=== PATIENT | male | born 1980 | race Caucasian/White ===

== ENCOUNTER 2017-07-13 17:32 | Emergency (ER) | payer OTHER ==
[2017-07-13 17:42] VITALS: RESP 16; TEMP 98.2
--- NOTE | 2017-07-13 17:46 | EDPHY ---
H & P Stated Complaint: word finding difficulty HPI/ROS: CHIEF COMPLAINT: Difficulty finding words verbally and written HISTORY OF PRESENT ILLNESS: The patient is a 37 y/o male with an undiagnosed but probable history of ocular migraines complaining of an episode in which he had difficulty finding words both verbally and reading. About 45 minutes ago he was getting ready to leave work when he went to send a text. As he was typing the words, he noticed he "just couldn't get the words right". He tried to write by hand and had the same problem. He then approached a coworker and had difficulty saying the correct word. As he exited the building to go to the ED he noted an aura in his right eye. He has had auras before that are peripheral and sparkling. This aura was also peripheral and sparkling, he also describes lightning bolts in his vision. He had a mild headache on the drive over. He denies current headache, nausea, vomiting, muscular impairments, decreased sensation, or any other associated symptoms. His language difficulty has resolved. He has had a few recent illnesses with the most recent being 5 days of vomiting that resolved 2 weeks ago. He reports he used his eczema medication for the first time in over a year last night. REVIEW OF SYSTEMS: A ten point review of systems was performed and is negative with the exception of the items mentioned in the HPI. Past medical history: 1. Probable ocular migraines 2. ADHD 3. Eczema Past surgical history: Denies Family history: DVT and PE maternally, angina and CLL paternally Social history: at bedside, associate data scientist, works at [employer] General Appearance: Alert. Vital signs reviewed. Blood pressure 156/115. Eyes: Pupils equal and round, no conjunctival injection, no discharge. Anicteric. ENT, Mouth: Mucous membranes are moist, no oropharyngeal erythema or edema. Neck: No lymphadenopathy, supple. Respiratory: Lungs are clear to auscultation; no wheezes, rales, or rhonchi. Cardiovascular: Regular rate and rhythm; no murmur, rub, or gallop. Gastrointestinal: Abdomen is soft and nontender, no masses or organomegaly, bowel sounds normal. Skin: Warm and dry, no rashes on exposed skin, normal color. Back: Nontender to palpation over the thoracolumbar spine. No CVAT. Extremities: No lower extremity edema, no calf tenderness or swelling. Neurological: Alert and oriented. Moving all four extremities easily and equally. Cranial nerves II through XII are examined and are intact (visual acuity not tested). Strength is 5 over 5 bilaterally with testing of all major motor groups. Sensation is intact to light touch over all 4 extremities. Deep tendon reflexes are 2+ in the biceps and knees bilaterally. Gait is normal. [id number]-sm-[id number] is performed accurately. Psychiatric: Normal affect. - Personal History Current Tetanus/Diphtheria Vaccine: Yes Current Tetanus Diphtheria and Acellular Pertussis (TDAP): Yes - Medical/Surgical History Hx Asthma: No Hx Chronic Respiratory Disease: No Hx Diabetes: No Hx Cardiac Disease: No Hx Renal Disease: No Hx Cirrhosis: No Hx Alcoholism: No Hx HIV/AIDS: No Hx Splenectomy or Spleen Trauma: No Other PMH: denies - Social History Smoking Status: Never smoked Constitutional: Initial Vital Signs Temperature (C) 36.8 C 07/13/17 17:40 Heart Rate 78 07/13/17 17:40 Respiratory Rate 16 07/13/17 17:40 Blood Pressure 156/115 H 07/13/17 17:40 O2 Sat (%) 95 07/13/17 17:40 O2 Delivery Mode Room Air Allergies/Adverse Reactions: No Known Allergies Allergy (Unverified 07/13/17 17:39) Home Medications: Medication Instructions Recorded NK [No Known Home Meds] 07/13/17 Medical Decision Making ED Course/Re-evaluation: The patient has some clear anxiety about the event. I offered a CT and explained the risks. He would like to think about it. He is concerned about his blood pressure, which was 156/115 on arrival. I advise him to relax and we will recheck. On reassessment his blood pressure has improved to 133/96. He understands that this is not normal BP. He informs me of an episode in which he had pain in his side and lost consciousness on a flight 6 years ago. He is worried because he will be on a flight to [place] soon. We discussed warning signs that he should be aware of. I feel his current episode is an ocular migraine. I advise him to check his blood pressure and have it followed up on by PCP. Return precautions and follow-up instructions given. The patient agrees to this course of action. As above, I feel that he has ocular migraines. His neuro exam is normal in the ED. He does not have headache. He does not wish to pursue imaging. I do not suspect SAH, intracranial bleed, mass. I do not think he has had a seizure. He has no neck stiffness and I do not think that he has an intracranial infection. Departure - Departure Disposition: Home, Routine, Self-Care Clinical Impression: Ocular migraine Condition: Good Instructions: Ocular Migraine (ED) Additional Instructions: 1. Follow up with your primary care provider in a month regarding your blood pressure. 2. If you have symptoms of a blood clot or symptoms of an ocular migraine that do not improve with time, please come in to be evaluated. 3. Return for any worsening of condition. Adult Pain & Fever Control: We recommend Acetaminophen (Tylenol) and Ibuprofen (Motrin,Advil) for pain and fever control. When fever is high or pain severe, both drugs can be used at the same time, but at different intervals. Please note the time differences. Your dose is: Acetaminophen 650mg every 4 to 6 hours Ibuprofen []mg every 600mg hours with food Note: do not take Acetaminophen with Hydrocodone (Vicodin, Lortab) or Oycodone (Percocet). These medications also contain Acetaminophen. No more than 3000mg of Acetaminophen should be taken in 24 hours (for an adult). Referrals: Karely Limon [Other] - As per Instructions Report Scribed for: Michelle Morfin Report Scribed by: Mora Drake Date of Report: 07/13/17 Time of Report: 18:10 Physician Review and Approval Statement: 07/13/17 17:45 Portions of this note were transcribed by the medical file clerk. I, Dr. Michelle Morfin, personally performed the history, physical exam, and medical decision- making; and confirmed the accuracy of the information in the transcribed note.
[2017-07-13 18:41] VITALS: BP 133/96; PULSE 80; O2SAT 94
== END 2017-07-13 18:42 | disposition home or self-care (01) ==
DX: G43.819 Other migraine, intractable, without status migrainosus (principal)